=== PATIENT | female | born 1940 | race Caucasian/White ===

== ENCOUNTER 2018-06-02 07:48 | Inpatient (IN) | payer MEDICARE, BC ==
--- NOTE | 2018-06-02 08:37 | EDM.PDOC ---
ED HPI GENERAL MEDICAL PROBLEM - General Chief Complaint: General Stated Complaint: FALL VIA [place]TH Time Seen by Provider: 06/02/18 08:37 Source of Information: Reports: Patient History Limitations: Reports: No Limitations - History of Present Illness INITIAL COMMENTS - FREE TEXT/NARRATIVE: pt was sittng on the stool having a bm and shje became litheaded and passed out. She ended up hitting her left shoulder and she has alot of bruising and pain in the left shoulder area, She is also tender over the left upper chest. She is mildly sob. Onset: Today, Sudden Duration: Hour(s): Location: Reports: Chest, Upper Extremity, Left Associated Symptoms: Reports: Syncope, Other (pt passed out while having a stool. ) Left Arm Pain Score (Numeric/FACES): 10 - Related Data Allergies Allergy/AdvReac Type Severity Reaction Status Date / Time nickel Allergy Itching Verified 06/02/18 08:07 Home Meds: Home Meds Allopurinol [Zyloprim] 100 mg PO ASDIRECTED PRN 08/26/13 [History] Cyanocobalamin (Vitamin B-12) [Vitamin B-12] 1 tab PO DAILY 08/26/13 [History] Calcium Carb/Vitamin D3/Vit K1 [Calcium + Vit D & K Chew] 1 each PO BID [History] Carvedilol [Coreg] 6.25 mg PO BID 02/09/15 [History] Cholecalciferol (Vitamin D3) [Vitamin D3] 2,000 unit PO DAILY 02/09/15 [History] Vitamin B Complex [B Complex] 1 each PO DAILY 02/09/15 [History] Polyethylene Glycol 3350 [MiraLAX] 119 gm PO ASDIRECTED PRN 06/02/18 [History] Past Medical History HEENT History: Reports: Cataract, Macular Degeneration, Retinal Detachment Cardiovascular History: Reports: Heart Failure, High Cholesterol, Hypertension Gastrointestinal History: Reports: Cholelithiasis Genitourinary History: Reports: Acute Renal Failure [employer]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: Musculoskeletal History: Reports: Arthritis, Back Pain, Chronic, Gout Endocrine/Metabolic History: Reports: Obesity/BMI 30+ Hematologic History: Reports: B12 Deficiency - Infectious Disease History Infectious Disease History: Reports: Chicken Pox - Past Surgical History HEENT Surgical History: Reports: Cataract Surgery, Other (See Below) GI Surgical History: Reports: Bariatric Procedure, Cholecystectomy Female Surgical History: Reports: Tubal Ligation Musculoskeletal Surgical History: Reports: Joint Replacement, Knee Replacement Other Musculoskeletal Surgeries/Procedures:: both knees Social & Family History - Family History HEENT: Reports: Macular Degeneration Cardiac: Reports: Heart Failure Other Endocrine/Metabolic Family History: No family history of difficulty with anesthesia - Tobacco Use Smoking Status *Q: Former Smoker Used Tobacco, but Quit: Yes Month/Year Tobacco Last Used: 10 years ago - Caffeine Use Caffeine Use: Reports: Coffee - Recreational Drug Use Recreational Drug Use: No ED ROS GENERAL - Review of Systems Review Of Systems: See Below Constitutional: Reports: No Symptoms HEENT: Reports: No Symptoms Respiratory: Reports: No Symptoms Cardiovascular: Reports: No Symptoms Endocrine: Reports: No Symptoms GI/Abdominal: Reports: No Symptoms : Reports: No Symptoms Musculoskeletal: Reports: Other ( severe swelling and pain in the left shoulder area. ) Skin: Reports: No Symptoms Neurological: Reports: No Symptoms Psychiatric: Reports: No Symptoms ED EXAM, GENERAL - Physical Exam Exam: See Below Free Text/Narrative:: Pt arrived with pain and swelling in the left shoulder. She had a episode of syncope while having a bm thjis am. She fell and injured the ant chest and left shoulder. Exam Limited By: No Limitations General Appearance: Alert, Moderate Distress, Other (pupils equal and reactive. ) Ears: Normal TMs Nose: Normal Inspection Throat/Mouth: Normal Inspection Head: Atraumatic Neck: Normal Inspection Respiratory/Chest: No Respiratory Distress Cardiovascular: Regular Rate, Rhythm GI/Abdominal: Soft (Female) Exam: Deferred Rectal (Female) Exam: Deferred Back Exam: Normal Inspection Extremities: Normal Inspection Neurological: Alert, Oriented, Normal Cognition Psychiatric: Normal Affect Course - Vital Signs Last Recorded V/S: Last Vital Signs Temp 36.3 C 06/02/18 08:04 Pulse 71 06/02/18 08:04 Resp 17 06/02/18 08:04 BP 150/64 H 06/02/18 08:04 Pulse Ox 100 06/02/18 08:04 - Orders/Labs/Meds Orders: Active Orders 24 hr Category Date Time Status EKG Documentation Completion [RC] ASDIRECTED Care 06/02/18 08:39 Active Chest 1V Frontal [CR] Stat Exams 06/02/18 08:35 Taken Chest wo Cont [CT] Stat Exams 06/02/18 09:27 Taken Shoulder 1V Lt [CR] Stat Exams 06/02/18 08:35 Taken UA W/MICROSCOPIC [URIN] Urgent Lab 06/02/18 08:39 Ordered Sodium Chloride 0.9% [Normal Saline] 1,000 ml Med 06/02/18 08:45 Active IV ASDIRECTED Sodium Chloride 0.9% [Saline Flush] Med 06/02/18 08:39 Active 10 ml FLUSH ASDIRECTED PRN Saline Lock Insert [OM.PC] Routine Oth 06/02/18 08:39 Ordered EKG 12 Lead [EK] Routine Ther 06/02/18 08:39 Ordered Medication Orders Sodium Chloride (Normal Saline) 1,000 mls @ 500 mls/hr IV ASDIRECTED ANJELICA Last Admin: 06/02/18 10:27 Dose: 500 mls/hr Sodium Chloride (Saline Flush) 10 ml FLUSH ASDIRECTED PRN PRN Reason: Keep Vein Open Labs: Laboratory Tests 06/02/18 06/02/18 06/02/18 Range/Units 08:51 08:51 08:51 WBC 10.1 (4.5-11.0) K/uL RBC 3.71 (3.30-5.50) M/uL Hgb 12.4 (12.0-15.0) g/dL Hct 36.1 (36.0-48.0) % MCV 97 (80-98) fL MCH 33 H (27-31) pg MCHC 34 (32-36) % Plt Count 229 (150-400) K/uL Neut % (Auto) 80 H (36-66) % Lymph % (Auto) 10 L (24-44) % [place] % (Auto) 10 H (2-6) % Eos % (Auto) 0 L (2-4) % Baso % (Auto) 0 (0-1) % Sodium 136 L (140-148) mmol/L Potassium 4.6 (3.6-5.2) mmol/L Chloride 105 (100-108) mmol/L Carbon Dioxide 24 (21-32) mmol/L Anion Gap 11.6 (5.0-14.0) mmol/L BUN 27 H (7-18) mg/dL Creatinine 1.1 H (0.6-1.0) mg/dL Est Cr Clr Drug Dosing 38.16 mL/min Estimated GFR (MDRD) 48 L (>60) Glucose 135 H (74-106) mg/dL Calcium 8.7 (8.5-10.1) mg/dL Total Bilirubin 1.1 H D (0.2-1.0) mg/dL AST 34 D (15-37) U/L ALT 22 D (12-78) U/L Alkaline Phosphatase 87 (46-116) U/L Troponin I < 0.017 (0.000-0.056) ng/mL Total Protein 6.8 (6.4-8.2) g/dL Albumin 3.2 L (3.4-5.0) g/dL Globulin 3.6 H (2.3-3.5) g/dL Albumin/Globulin Ratio 0.9 L (1.2-2.2) Meds: Medications Generic Name Dose Route Start Last Admin Trade Name Freq PRN Reason Stop Dose Admin Sodium Chloride 1,000 mls @ 500 mls/hr 06/02/18 08:45 06/02/18 10:27 Normal Saline IV 500 mls/hr ASDIRECTED ANJELICA Administration Sodium Chloride 10 ml 06/02/18 08:39 Saline Flush FLUSH ASDIRECTED PRN Keep Vein Open Discontinued Medications Generic Name Dose Route Start Last Admin Trade Name Freq PRN Reason Stop Dose Admin Hydromorphone HCl 0.5 mg 06/02/18 08:38 06/02/18 08:49 Dilaudid IVPUSH 06/02/18 08:39 0.5 mg ONETIME ONE Administration - Re-Assessments/Exams Free Text/Narrative Re-Assessment/Exam: 06/02/18 09:36 pt has fractured humerus with displacement. Pt has a fracture on the trochanter of the humeral head without sig displacement. Her clavicle is intact. There was a questable fracture of the 3rd rib and alot of swellin over the left upper chest. A cat scan of the chest was done which showed no lung injury There is thickening of the pectoralis and the rotator cuff. There is edema of the anterior chest. 06/02/18 10:34 Departure - Departure Time of Disposition: 10:54 Disposition: Admitted As Inpatient 68 Condition: Fair Clinical Impression: Humeral shaft fracture, Fracture of humerus greater tuberosity, Hematoma, chest wall - Discharge Information Referrals: Sumit Lauren MD [Primary Care Provider] - Forms: ED Department Discharge Care Plan Goals: admit to Dr martines. - My Orders Last 24 Hours: My Active Orders 06/02/18 08:35 Chest 1V Frontal [CR] Stat Shoulder 1V Lt [CR] Stat 06/02/18 08:39 EKG Documentation Completion [RC] ASDIRECTED UA W/MICROSCOPIC [URIN] Urgent Sodium Chloride 0.9% [Saline Flush] 10 ml FLUSH ASDIRECTED PRN Saline Lock Insert [OM.PC] Routine EKG 12 Lead [EK] Routine 06/02/18 08:45 Sodium Chloride 0.9% [Normal Saline] 1,000 ml IV ASDIRECTED 06/02/18 09:27 Chest wo Cont [CT] Stat - Assessment/Plan Last 24 Hours: My Active Orders 06/02/18 08:35 Chest 1V Frontal [CR] Stat Shoulder 1V Lt [CR] Stat 06/02/18 08:39 EKG Documentation Completion [RC] ASDIRECTED UA W/MICROSCOPIC [URIN] Urgent Sodium Chloride 0.9% [Saline Flush] 10 ml FLUSH ASDIRECTED PRN Saline Lock Insert [OM.PC] Routine EKG 12 Lead [EK] Routine 06/02/18 08:45 Sodium Chloride 0.9% [Normal Saline] 1,000 ml IV ASDIRECTED 06/02/18 09:27 Chest wo Cont [CT] Stat
[2018-06-02] MEDS ORDERED: HYDROmorphone 0.5 MG/0.5 ML Syringe IVPUSH ONE ×2 (08:38→12:10)
[2018-06-02] MEDS ORDERED: Sodium Chloride 0.9% 10 ML Syringe FLUSH PRN ×3 (08:39→23:53)
[2018-06-02] MEDS ORDERED: Sodium Chloride 0.9% 1,000 ML IV SCH (08:45)
--- NOTE | 2018-06-02 12:07 | PCM.HP ---
H&P History of Present Illness - General Date of Service: 06/02/18 Admit Problem/Dx: Admission Diagnosis/Problem Admission Diagnosis/Problem Syncope Source of Information: Patient, Family, Old Records, Provider, RN Notes Reviewed History Limitations: Reports: No Limitations - History of Present Illness Initial Comments - Free Text/Narative: Ms. Sal is a 77-year-old woman who is admitted through the emergency department following a syncopal episode, resulting in hematoma and 2 fractures of the left humerus. She has a known history of congestive heart failure, but has had improvement in her heart function. She has been taking Coreg twice daily but recently has experienced episodes of lightheadedness. Her dose of Coreg was recently decreased, she felt well yesterday and felt well when she got up this morning. After getting out of bed she went into the bathroom and was sitting on the toilet when she experienced sudden onset of a syncopal event. She denies any prodromal symptoms including lightheadedness, nausea, or diaphoresis. She experienced no symptoms of chest pain or pressure and noted no palpitations including rapid or slow heart rate. She experienced severe pain in her left arm and shoulder immediately following the event. She was brought into the emergency department for further evaluation and is noted to have a fracture of the left humeral head as well as a displaced midshaft fracture. X-rays have been reviewed by the orthopedic service and current recommendation is that this be managed conservatively. Left Arm Pain Score (Numeric/FACES): 10 - Related Data Allergies/Adverse Reactions: Allergies Allergy/AdvReac Type Severity Reaction Status Date / Time nickel Allergy Itching Verified 06/02/18 08:07 Home Medications: Home Meds Allopurinol [Zyloprim] 100 mg PO ASDIRECTED PRN 08/26/13 [History] Cyanocobalamin (Vitamin B-12) [Vitamin B-12] 1 tab PO DAILY 08/26/13 [History] Calcium Carb/Vitamin D3/Vit K1 [Calcium + Vit D & K Chew] 1 each PO BID [History] Carvedilol [Coreg] 6.25 mg PO BID 02/09/15 [History] Cholecalciferol (Vitamin D3) [Vitamin D3] 2,000 unit PO DAILY 02/09/15 [History] Vitamin B Complex [B Complex] 1 each PO DAILY 02/09/15 [History] Polyethylene Glycol 3350 [MiraLAX] 119 gm PO ASDIRECTED PRN 06/02/18 [History] Past Medical History HEENT History: Reports: Cataract, Macular Degeneration, Retinal Detachment Cardiovascular History: Reports: Heart Failure, High Cholesterol, Hypertension Gastrointestinal History: Reports: Cholelithiasis Genitourinary History: Reports: Acute Renal Failure 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: Musculoskeletal History: Reports: Arthritis, Back Pain, Chronic, Gout Endocrine/Metabolic History: Reports: Obesity/BMI 30+ Hematologic History: Reports: B12 Deficiency - Infectious Disease History Infectious Disease History: Reports: Chicken Pox - Past Surgical History HEENT Surgical History: Reports: Cataract Surgery, Other (See Below) GI Surgical History: Reports: Bariatric Procedure, Cholecystectomy Female Surgical History: Reports: Tubal Ligation Musculoskeletal Surgical History: Reports: Joint Replacement, Knee Replacement Other Musculoskeletal Surgeries/Procedures:: both knees Social & Family History - Family History HEENT: Reports: Macular Degeneration Cardiac: Reports: Heart Failure Other Endocrine/Metabolic Family History: No family history of difficulty with anesthesia - Tobacco Use Smoking Status *Q: Former Smoker Used Tobacco, but Quit: Yes Month/Year Tobacco Last Used: 10 years ago - Caffeine Use Caffeine Use: Reports: Coffee - Recreational Drug Use Recreational Drug Use: No H&P Review of Systems - Review of Systems: Review Of Systems: See Below General: Denies: Fever, Chills, Weakness, Diaphoresis HEENT: Reports: No Symptoms Pulmonary: Reports: No Symptoms Cardiovascular: Reports: Lightheadedness, Syncope. Denies: Chest Pain, Palpitations, Dyspnea on Exertion, Orthopnea, PND, Edema Gastrointestinal: Reports: No Symptoms Genitourinary: Reports: No Symptoms Musculoskeletal: Reports: Arm Pain (Severe left arm pain) Skin: Reports: No Symptoms Psychiatric: Reports: No Symptoms Neurological: Reports: No Symptoms Hematologic/Lymphatic: Reports: No Symptoms Immunologic: Reports: No Symptoms Exam - Exam Exam: See Below - Vital Signs Vital Signs: Last Vital Signs Temp 97.3 F 06/02/18 08:04 Pulse 74 06/02/18 11:03 Resp 17 06/02/18 11:03 BP 151/64 H 06/02/18 11:03 Pulse Ox 96 06/02/18 11:03 Weight: 180 lb - Exam Quality Assessment: DVT Prophylaxis General: Alert, Oriented, Cooperative, Moderate Distress HEENT: Conjunctiva Clear, Hearing Intact, Mucosa Moist & [place], Normal Nasal Septum, Posterior Pharynx Clear, Pupils Equal Neck: Supple, Trachea Midline, +2 Carotid Pulse wo Bruit Lungs: Clear to Auscultation, Normal Respiratory Effort Cardiovascular: Regular Rate, Regular Rhythm, Normal S1, Normal S2. No: Systolic Murmur, Diastolic Murmur GI/Abdominal Exam: Soft, Non-Tender, No Organomegaly, No Distention Extremities: No Pedal Edema, Other (Severe pain left upper arm) Skin: Warm, Dry Neurological: Cranial Nerves Intact, Strength Equal Bilateral, Normal Speech, Normal Tone, Sensation Intact. No: Focal Deficit Neuro Extensive - Mental Status: Alert, Oriented x3, Normal Mood/Affect, Normal Cognition, Memory Intact - Patient Data Lab Results Last 24 hrs: Laboratory Results - last 24 hr 06/02/18 06/02/18 06/02/18 Range/Units 08:51 08:51 08:51 WBC 10.1 (4.5-11.0) K/uL RBC 3.71 (3.30-5.50) M/uL Hgb 12.4 (12.0-15.0) g/dL Hct 36.1 (36.0-48.0) % MCV 97 (80-98) fL MCH 33 H (27-31) pg MCHC 34 (32-36) % Plt Count 229 (150-400) K/uL Neut % (Auto) 80 H (36-66) % Lymph % (Auto) 10 L (24-44) % [place] % (Auto) 10 H (2-6) % Eos % (Auto) 0 L (2-4) % Baso % (Auto) 0 (0-1) % Sodium 136 L (140-148) mmol/L Potassium 4.6 (3.6-5.2) mmol/L Chloride 105 (100-108) mmol/L Carbon Dioxide 24 (21-32) mmol/L Anion Gap 11.6 (5.0-14.0) mmol/L BUN 27 H (7-18) mg/dL Creatinine 1.1 H (0.6-1.0) mg/dL Est Cr Clr Drug Dosing 38.16 mL/min Estimated GFR (MDRD) 48 L (>60) Glucose 135 H (74-106) mg/dL Calcium 8.7 (8.5-10.1) mg/dL Total Bilirubin 1.1 H D (0.2-1.0) mg/dL AST 34 D (15-37) U/L ALT 22 D (12-78) U/L Alkaline Phosphatase 87 (46-116) U/L Troponin I < 0.017 (0.000-0.056) ng/mL Total Protein 6.8 (6.4-8.2) g/dL Albumin 3.2 L (3.4-5.0) g/dL Globulin 3.6 H (2.3-3.5) g/dL Albumin/Globulin Ratio 0.9 L (1.2-2.2) Result Diagrams: 06/02/18 08:51 06/02/18 08:51 *Q Meaningful Use (ADM) - VTE *Q VTE Pharmacological Contraindications *Q: Risk of Bleeding - VTE Risk Assess *Q Each Risk Factor Represents 1 Point: Obesity ( BMI > 25 kg/m2), Congestive heart failure (CHF) Total Score 1 Point Risk Factors: 2 Each Risk Factor Represents 2 Points: None Total Score 2 Point Risk Factors: 0 Each Risk Factor Represents 3 Points: Age 75 Years or Greater Total Score 3 Point Risk Factors: 3 Each Risk Factor Represents 5 Points: None Total Score 5 Point Risk Factors: 0 Venous Thromboembolism Risk Factor Score *Q: 5 Problem List Initiated/Reviewed/Updated: Yes Orders Last 24hrs: Active Orders 24 hr Category Date Time Status Patient Status Manage Transfer [TRANSFER] Routine ADT 06/02/18 11:46 Active EKG Documentation Completion [RC] ASDIRECTED Care 06/02/18 08:39 Active Chest 1V Frontal [CR] Stat Exams 06/02/18 08:35 Taken Chest wo Cont [CT] Stat Exams 06/02/18 09:27 Taken Shoulder 1V Lt [CR] Stat Exams 06/02/18 08:35 Taken UA W/MICROSCOPIC [URIN] Urgent Lab 06/02/18 08:39 Ordered HYDROmorphone [Dilaudid] Med 06/02/18 12:10 Once 0.5 mg IVPUSH ONETIME ONE Sodium Chloride 0.9% [Saline Flush] Med 06/02/18 08:39 Active 10 ml FLUSH ASDIRECTED PRN Saline Lock Insert [OM.PC] Routine Oth 06/02/18 08:39 Ordered Resuscitation Status Routine Resus Stat 06/02/18 11:48 Ordered EKG 12 Lead [EK] Routine Ther 06/02/18 08:39 Ordered Medication Orders Hydromorphone HCl (Dilaudid) 0.5 mg IVPUSH ONETIME ONE Stop: 06/02/18 12:11 Sodium Chloride (Saline Flush) 10 ml FLUSH ASDIRECTED PRN PRN Reason: Keep Vein Open Assessment/Plan Comment:: ASSESSMENT AND PLAN SYNCOPAL EPISODE-recent history of lightheadedness, thought to be secondary to medication effect. Denied symptoms of lightheadedness this morning but experienced abrupt onset of syncope with no prodromal symptoms. -Cardiac monitoring -Orthostatic vital signs -Hold Coreg LEFT HUMERUS [id number] shows evidence of fracture of the humeral head as well as a fracture involving the proximal third of the humeral shaft. X-rays have been reviewed by orthopedic surgery and they have recommended conservative management. -Pain medication as needed -Shoulder immobilizer -Outpatient follow-up with orthopedic surgery HEMATOMA-secondary to fracture and fall -Follow-up hemoglobin later today and again in a.m. CONGESTIVE HEART FAILURE-well compensated MAINTENANCE ISSUES -DVT prophylaxis; SCUDs, hold on anticoagulation because of hematoma -GI prophylaxis; not indicated -Chaves catheter; not indicated -Nutrition; regular diet -Nicotine dependence; not required CODE STATUS-FULL CODE ADMISSION STATUS-patient will be admitted to inpatient status, expect at least a 2 night hospital stay for evaluation and management of problems as outlined above. At the time of this admission I do not reasonably expected evaluation and management of this problem will require more than a 96 hour hospital stay. DISPOSITION-anticipate discharge to home after the hospital stay. PRIMARY CARE PROVIDER-Dr. Lauren
[2018-06-02] MEDS ORDERED: Ondansetron 4 MG/2 ML SDV IV PRN (12:20)
[2018-06-02] MEDS ORDERED: HYDROmorphone/Normal Saline 15 MG/30 ML PCA IV PRN (12:20)
[2018-06-02] MEDS ORDERED: Polyethylene Glycol 3350 Powder 17 GM Packet PO PRN (12:20)
[2018-06-02] MEDS ORDERED: Magnesium Hydroxide 400 MG/5 ML Susp 30 ML Cup PO PRN (12:20)
[2018-06-02] MEDS ORDERED: Acetaminophen 325 MG Tab PO PRN (12:20)
[2018-06-02] MEDS ORDERED: Allopurinol 100 MG Tab PO PRN (12:20)
[2018-06-02] MEDS ORDERED: Naloxone 0.4 MG/ML SDV IVPUSH PRN (12:20)
[2018-06-02] MEDS: Lactated Ringers 1,000 ML IV SCH (13:02)
[2018-06-02] MEDS: Cholecalciferol (Vitamin D3) 1,000 Unit Tab PO SCH (15:12)
[2018-06-02] MEDS: Vitamin B Complex Tab PO SCH (15:12)
[2018-06-02] MEDS: Docusate Sodium 100 MG Cap PO SCH ×2 (15:12→21:40)
[2018-06-02] MEDS: Calcium Carbonate/Vitamin D3 1500 MG-400 Units Tab PO SCH ×2 (15:12→21:40)
[2018-06-02] MEDS: Cyanocobalamin (Vitamin B12) 1,000 MCG Tab PO SCH (15:12)
[2018-06-03] MEDS: Lactated Ringers 1,000 ML IV SCH (03:53)
[2018-06-03] MEDS: Docusate Sodium 100 MG Cap PO SCH ×2 (08:54→22:06)
[2018-06-03] MEDS: Cyanocobalamin (Vitamin B12) 1,000 MCG Tab PO SCH (08:55)
[2018-06-03] MEDS: Cholecalciferol (Vitamin D3) 1,000 Unit Tab PO SCH (08:55)
[2018-06-03] MEDS: Calcium Carbonate/Vitamin D3 1500 MG-400 Units Tab PO SCH ×2 (08:56→22:06)
[2018-06-03] MEDS: Vitamin B Complex Tab PO SCH (08:56)
--- NOTE | 2018-06-03 10:47 | PCM.PN ---
- General Info Date of Service: 06/03/18 Subjective Update: This patient has remained stable since admission, pain control overall has been adequate. She did experience a drop in hemoglobin with hydration but there is no further evidence of active bleeding. She denies significant lightheadedness and there have been no significant cardiac dysrhythmias or orthostatic drop in blood pressure. - Review of Systems General: Denies: Fever, Weakness, Chills Pulmonary: Reports: No Symptoms Cardiovascular: Reports: No Symptoms Gastrointestinal: Reports: No Symptoms Musculoskeletal: Reports: Arm Pain - Patient Data Vitals - Most Recent: Last Vital Signs Temp 97.4 F 06/03/18 07:35 Pulse 78 06/03/18 03:00 Resp 16 06/03/18 03:00 BP 137/45 L 06/03/18 03:00 Pulse Ox 94 L 06/03/18 07:46 Orthostatic Blood Pressure [ 130/104 Standing] Orthostatic Blood Pressure [ 149/76 Sitting] Orthostatic Blood Pressure [ 138/61 Supine] Weight - Most Recent: 190 lb I&O - Last 24 Hours: Intake & Output 06/02/18 06/03/18 06/03/18 22:59 06:59 14:59 Intake Total 830 Output Total 100 375 100 Balance 730 -375 -100 Lab Results Last 24 Hours: Laboratory Results - last 24 hr 06/02/18 06/02/18 06/03/18 Range/Units 18:19 18:29 04:50 WBC 6.8 (4.5-11.0) K/uL RBC 3.15 L (3.30-5.50) M/uL Hgb 11.2 L 10.3 L (12.0-15.0) g/dL Hct 31.3 L (36.0-48.0) % MCV 99 H (80-98) fL MCH 33 H (27-31) pg MCHC 33 (32-36) % Plt Count 190 (150-400) K/uL Neut % (Auto) 61 (36-66) % Lymph % (Auto) 21 L (24-44) % Tate % (Auto) 17 H (2-6) % Eos % (Auto) 1 L (2-4) % Baso % (Auto) 0 (0-1) % Sodium (140-148) mmol/L Potassium (3.6-5.2) mmol/L Chloride (100-108) mmol/L Carbon Dioxide (21-32) mmol/L Anion Gap (5.0-14.0) mmol/L BUN (7-18) mg/dL Creatinine (0.6-1.0) mg/dL Est Cr Clr Drug Dosing mL/min Estimated GFR (MDRD) (>60) Glucose (74-106) mg/dL Calcium (8.5-10.1) mg/dL Urine Color Yellow Urine Appearance Cloudy Urine pH 5.0 (4.5-8.0) Ur Specific Allyn 1.020 (1.008-1.030) Urine Protein Trace (NEGATIVE) mg/dL Urine Glucose (UA) Normal (NEGATIVE) mg/dL Urine Ketones Negative (NEGATIVE) mg/dL Urine Occult Blood Moderate (NEGATIVE) Urine Nitrite Negative (NEGATIVE) Urine Bilirubin Small (NEGATIVE) Urine Urobilinogen Normal (NORMAL) mg/dL Ur Leukocyte Esterase Small (NEGATIVE) Urine RBC 5-10 H (0-5) Urine WBC 20-30 H (0-5) Ur Epithelial Cells Few Amorphous Sediment Not seen Urine Bacteria Many Urine Mucus Not seen 06/03/18 Range/Units 04:50 WBC (4.5-11.0) K/uL RBC (3.30-5.50) M/uL Hgb (12.0-15.0) g/dL Hct (36.0-48.0) % MCV (80-98) fL MCH (27-31) pg MCHC (32-36) % Plt Count (150-400) K/uL Neut % (Auto) (36-66) % Lymph % (Auto) (24-44) % Tate % (Auto) (2-6) % Eos % (Auto) (2-4) % Baso % (Auto) (0-1) % Sodium 138 L (140-148) mmol/L Potassium 4.5 (3.6-5.2) mmol/L Chloride 106 (100-108) mmol/L Carbon Dioxide 23 (21-32) mmol/L Anion Gap 13.5 (5.0-14.0) mmol/L BUN 28 H (7-18) mg/dL Creatinine 1.1 H (0.6-1.0) mg/dL Est Cr Clr Drug Dosing 38.16 mL/min Estimated GFR (MDRD) 48 L (>60) Glucose 120 H (74-106) mg/dL Calcium 8.2 L (8.5-10.1) mg/dL Urine Color Urine Appearance Urine pH (4.5-8.0) Ur Specific Allyn (1.008-1.030) Urine Protein (NEGATIVE) mg/dL Urine Glucose (UA) (NEGATIVE) mg/dL Urine Ketones (NEGATIVE) mg/dL Urine Occult Blood (NEGATIVE) Urine Nitrite (NEGATIVE) Urine Bilirubin (NEGATIVE) Urine Urobilinogen (NORMAL) mg/dL Ur Leukocyte Esterase (NEGATIVE) Urine RBC (0-5) Urine WBC (0-5) Ur Epithelial Cells Amorphous Sediment Urine Bacteria Urine Mucus Med Orders - Current: Current Medications Acetaminophen (Tylenol) 650 mg PO Q4H PRN PRN Reason: Pain (Mild 1-3)/fever Allopurinol (Zyloprim) 100 mg PO ASDIRECTED PRN PRN Reason: gout Calcium Carbonate (Caltrate 600+D 1500 Mg-400 Units) 1 tab PO BID [facility] Last Admin: 06/03/18 08:56 Dose: 1 tab Cholecalciferol (Vitamin D3) 2,000 units PO DAILY [facility] Last Admin: 06/03/18 08:55 Dose: 2,000 units Cyanocobalamin (Vitamin B12) 1,000 mcg PO DAILY [facility] Last Admin: 06/03/18 08:55 Dose: 1,000 mcg Docusate Sodium (Colace) 100 mg PO BID [facility] Last Admin: 06/03/18 08:54 Dose: 100 mg Magnesium Hydroxide (Milk Of Magnesia) 30 ml PO Q12H PRN PRN Reason: Constipation Naloxone HCl (Narcan) 0.4 mg IVPUSH Q2M PRN PRN Reason: Respiratory Distress Ondansetron HCl (Zofran) 4 mg IV Q4H PRN PRN Reason: Nausea/Vomiting Polyethylene Glycol (Miralax) 17 gm PO DAILY PRN PRN Reason: Constipation Sodium Chloride (Saline Flush) 10 ml FLUSH ASDIRECTED PRN PRN Reason: Keep Vein Open Vitamin B Complex (Vitamin B Complex) 1 each PO DAILY [facility] Last Admin: 06/03/18 08:56 Dose: 1 each Discontinued Medications Hydromorphone HCl (Dilaudid) 0.5 mg IVPUSH ONETIME ONE Stop: 06/02/18 08:39 Last Admin: 06/02/18 08:49 Dose: 0.5 mg Hydromorphone HCl (Dilaudid) 0.5 mg IVPUSH ONETIME ONE Stop: 06/02/18 12:11 Last Admin: 06/02/18 12:22 Dose: 0.5 mg Hydromorphone HCl (Dilaudid Sewage Disposal Worker 15 Mg In Ns 30 Ml) 0 mg IV ASDIRECTED PRN; Protocol PRN Reason: Pain Last Admin: 06/02/18 13:02 Dose: 15 mg Sodium Chloride (Normal Saline) 1,000 mls @ 500 mls/hr IV ASDIRECTED ANJELICA Last Admin: 06/02/18 10:27 Dose: 500 mls/hr Lactated Ringer's (Ringers, Lactated) 1,000 mls @ 75 mls/hr IV ASDIRECTED [facility] Last Admin: 06/03/18 03:53 Dose: 75 mls/hr Sodium Chloride (Saline Flush) 10 ml FLUSH ASDIRECTED PRN PRN Reason: Keep Vein Open - Exam Quality Assessment: DVT Prophylaxis General: Alert, Oriented, Cooperative, Moderate Distress Lungs: Clear to Auscultation, Normal Respiratory Effort Cardiovascular: Regular Rate, Regular Rhythm, No Murmurs GI/Abdominal Exam: Soft, Non-Tender, No Organomegaly, No Distention Extremities: Arm Pain (Left arm is in a shoulder immobilizer) - Problem List Review Problem List Initiated/Reviewed/Updated: Yes - My Orders Last 24 Hours: My Active Orders 06/02/18 11:48 Resuscitation Status Routine 06/02/18 12:20 Patient Status [ADT] Routine Ambulate [RC] QID Cardiac Monitoring [RC] .As Directed Height and Weight [RC] DAILY Intake and Output [RC] QSHIFT Notify Provider Vital Signs [RC] ASDIRECTED Orthostatic Vital Signs [RC] Q6H Oxygen Therapy [RC] PRN Peripheral IV Care [RC] . DIRECTED Up With Assistance [RC] ASDIRECTED Up to Chair [RC] QID VTE/DVT Education [RC] Per Unit Routine Vital Signs [RC] Q4H OT Evaluation and Treatment [CONS] Routine PT Evaluation and Treatment [CONS] Routine Acetaminophen [Tylenol] 650 mg PO Q4H PRN Allopurinol [Zyloprim] 100 mg PO ASDIRECTED PRN Docusate Sodium [Colace] 100 mg PO BID Magnesium Hydroxide [Milk of Magnesia] 30 ml PO Q12H PRN Naloxone [Narcan] 0.4 mg IVPUSH Q2M PRN Ondansetron [Zofran] 4 mg IV Q4H PRN Polyethylene Glycol 3350 [MiraLAX] 17 gm PO DAILY PRN Sodium Chloride 0.9% [Saline Flush] 10 ml FLUSH ASDIRECTED PRN Vitamin B Complex 1 each PO DAILY Peripheral IV Insertion Adult [OM.PC] Routine Sequential Compression Device [OM.PC] Per Unit Routine VTE Pharmacological Contraindications [AST] Per Unit Routine 06/02/18 12:45 Calcium Carbonate/Vitamin D3 [Caltrate 600+D 1500 MG-400 Units] 1 tab PO BID 06/02/18 13:00 Cholecalciferol (Vitamin D3) [Vitamin D3] 2,000 units PO DAILY Cyanocobalamin (Vitamin B12) [Vitamin B12] 1,000 mcg PO DAILY 06/02/18 Lunch Regular Diet [DIET] 06/03/18 10:42 Acetaminophen/HYDROcodone [Whiting 325-5 MG] 1 tab PO Q4H PRN Convert IV to Saline Lock [OM.PC] Routine 06/04/18 05:00 BASIC METABOLIC PANEL,BMP [CHEM] Timed CBC WITH AUTO DIFF [HEME] Timed - Plan Plan:: ASSESSMENT AND PLAN SYNCOPAL EPISODE-recent history of lightheadedness, thought to be secondary to medication effect. Denied symptoms of lightheadedness this morning but experienced abrupt onset of syncope with no prodromal symptoms. No lightheadedness since admission, no significant cardiac dysrhythmias or significant drop in blood pressure with orthostatic change. -Cardiac monitoring -Orthostatic vital signs -Hold Coreg LEFT HUMERUS [id number] shows evidence of fracture of the humeral head as well as a fracture involving the proximal third of the humeral shaft. X-rays have been reviewed by orthopedic surgery and they have recommended conservative management. -Pain medication as needed -Shoulder immobilizer -Outpatient follow-up with orthopedic surgery tomorrow HEMATOMA-secondary to fracture and fall. Hemoglobin has dropped with hydration, no further evidence of active bleeding -Follow-up hemoglobin in a.m. CONGESTIVE HEART FAILURE-well compensated MAINTENANCE ISSUES -DVT prophylaxis; SCUDs, hold on anticoagulation because of hematoma -GI prophylaxis; not indicated -Chaves catheter; not indicated -Nutrition; regular diet -Nicotine dependence; not required CODE STATUS-FULL CODE ADMISSION STATUS-patient will be admitted to inpatient status, expect at least a 2 night hospital stay for evaluation and management of problems as outlined above. At the time of this admission I do not reasonably expected evaluation and management of this problem will require more than a 96 hour hospital stay. DISPOSITION-anticipate discharge to home tomorrow PRIMARY CARE PROVIDER-Dr. Lauren
--- NOTE | 2018-06-03 10:55 | CR ---
CHEST: Portable CLINICAL HISTORY:Left shoulder pain COMPARISON:None FINDINGS: Heart and pulmonary vascularity are normal. No infiltrate effusion or pneumothorax seen. T here are comminuted factors of the left proximal humerus. IMPRESSION: Lung gao are clear Comminuted fractures of the proximal left humerus
--- NOTE | 2018-06-03 10:57 | CR ---
Shoulder 1V Lt CLINICAL HISTORY: Severe pain and swelling FINDINGS: There is a comminuted displaced fracture of the proximal humerus and greater tubercle. Ther e is also an oblique displaced fracture with comminution in the proximal humeral shaft. Impression: Comminuted fractures of the left proximal humerus
[2018-06-03] MEDS: Acetaminophen/HYDROcodone 325-5 MG Tab PO PRN ×3 (11:11→19:50)
[2018-06-04] MEDS: Acetaminophen/HYDROcodone 325-5 MG Tab PO PRN ×3 (00:59→10:05)
[2018-06-04 07:39] VITALS: BP 117/41
--- NOTE | 2018-06-04 08:36 | PCM.DCSUM1 ---
Discharge Summary - Hospital Course Brief History: Ms. Sal is a 77-year-old woman who was admitted through the emergency department after she experienced a syncopal episode at home resulting in a fall and fractures of her left humerus. - Discharge Data Discharge Date: 06/04/18 Discharge Disposition: Home, W Home Health Agency 06 Condition: Fair - Discharge Diagnosis/Problem(s) (1) Hematoma, chest wall SNOMED Code(s): 986997467 ICD Code: S20.219A - CONTUSION OF UNSPECIFIED FRONT WALL OF THORAX, INIT ENCNTR Status: Acute Current Visit: Yes (2) Humeral shaft fracture SNOMED Code(s): 34668122 ICD Code: S42.309A - UNSP FRACTURE OF SHAFT OF HUMERUS, UNSP ARM, INIT Status: Acute Current Visit: Yes (3) Fracture of humerus greater tuberosity SNOMED Code(s): 758748507 ICD Code: S42.253A - DISP FX OF GREATER TUBEROSITY OF UNSP HUMERUS, INIT Status: Acute Current Visit: Yes (4) Stage III chronic kidney disease SNOMED Code(s): 572597298 ICD Code: N18.3 - CHRONIC KIDNEY DISEASE, STAGE 3 (MODERATE) Status: Chronic Current Visit: No - Patient Summary/Data Consults: Consultations 06/02/18 12:20 OT Evaluation and Treatment [CONS] Routine Please Evaluate and Treat. OT Reason for Consult: Left humerus fracture This query below is only for informational purposes and is not editable. PT Evaluation and Treatment [CONS] Routine Please Evaluate and Treat. PT Reason for Consult: Left humerus fracture This query below is only for informational purposes and is not editable. Hospital Course: Ms. Sal is a 77-year-old woman who was admitted through the emergency department following a syncopal episode, resulting in hematoma and 2 fractures of the left humerus. She has a known history of congestive heart failure, but has had improvement in her heart function. She has been taking Coreg twice daily but recently has experienced episodes of lightheadedness. Her dose of Coreg was recently decreased, she felt well yesterday and felt well when she got up this morning. After getting out of bed she went into the bathroom and was sitting on the toilet when she experienced sudden onset of a syncopal event. She denies any prodromal symptoms including lightheadedness, nausea, or diaphoresis. She experienced no symptoms of chest pain or pressure and noted no palpitations including rapid or slow heart rate. She experienced severe pain in her left arm and shoulder immediately following the event. She was brought into the emergency department for further evaluation and is noted to have a fracture of the left humeral head as well as a displaced midshaft fracture. X-rays have been reviewed by the orthopedic service and current recommendation is that this be managed conservatively. She was admitted to the hospital and given IV fluids for hydration as well as pain medication. Her left arm was placed in a shoulder immobilizer sling. CT scan of the chest had been obtained and showed no evidence of rib fractures but did document hematoma involving the chest wall. Serial hemoglobin levels were obtained and hemoglobin by the time of discharge had dropped to 9.3 and 12.4 at the time of admission. We discussed options for ongoing care including senior living placement. Patient has opted to return home with home care services. She has a follow-up appointment scheduled with orthopedic surgery for later this morning. Follow-up appointment will be scheduled with her primary care provider within one week. Hemoglobin level will be obtained on Saturday since June 06 and at the time of follow-up appointment with primary care. Activity will be as tolerated and she will resume her usual diet. - Patient Instructions Diet: Usual Diet as Tolerated Activity: As Tolerated Other/Special Instructions: Schedule follow-up appointment with Dr. William within one week. Hemoglobin level should be obtained at the time of that follow- up appointment. Patient already has follow-up appointment with orthopedic surgery scheduled for later this morning. Please have home care services obtain a hemoglobin level on Saturday, June 06. - Discharge Plan *PRESCRIPTION DRUG MONITORING PROGRAM REVIEWED*: Not Applicable *COPY OF PRESCRIPTION DRUG MONITORING REPORT IN PATIENT SALIMA: Not Applicable Prescriptions/Med Rec: Acetaminophen/HYDROcodone [Bancroft 325-5 MG] 1 tab PO Q4H PRN #30 tablet PRN Reason: Pain Home Medications: Home Meds Allopurinol [Zyloprim] 100 mg PO ASDIRECTED PRN 08/26/13 [History] Cyanocobalamin (Vitamin B-12) [Vitamin B-12] 1 tab PO DAILY 08/26/13 [History] Calcium Carb/Vitamin D3/Vit K1 [Calcium + Vit D & K Chew] 1 each PO BID [History] Cholecalciferol (Vitamin D3) [Vitamin D3] 2,000 unit PO DAILY 02/09/15 [History] Vitamin B Complex [B Complex] 1 each PO DAILY 02/09/15 [History] L.acidoph,Paracasei, B.lactis [Probiotic] 1 cap 06/02/18 [History] Polyethylene Glycol 3350 [MiraLAX] 119 gm PO ASDIRECTED PRN 06/02/18 [History] Acetaminophen/HYDROcodone [B[place]roft 325-5 MG] 1 tab PO Q4H PRN #30 tablet 06/04/18 [Rx] Referrals: Sumit Lauren MD [Primary Care Provider] - Jahaira Moran NP [Advanced RN Practitioner] - 06/04/18 10:15 am ( at 10:15 AM) - Discharge Summary/Plan Comment DC Time >30 min.: No - Patient Data Vitals - Most Recent: Last Vital Signs Temp 96.5 F 06/04/18 07:34 Pulse 85 06/04/18 07:34 Resp 16 06/04/18 07:34 BP 117/41 L 06/04/18 07:34 Pulse Ox 97 06/04/18 07:34 Orthostatic Blood Pressure [ 126/52 Standing] Orthostatic Blood Pressure [ 124/48 Sitting] Orthostatic Blood Pressure [ 117/41 Supine] Weight - Most Recent: 190 lb 0.016 oz I&O - Last 24 hours: Intake & Output 06/03/18 06/04/18 06/04/18 22:59 06:59 14:59 Output Total 450 250 300 Balance -450 -250 -300 Lab Results - Last 24 hrs: Laboratory Results - last 24 hr 06/04/18 06/04/18 Range/Units 05:00 05:00 WBC 6.8 (4.5-11.0) K/uL RBC 2.83 L (3.30-5.50) M/uL Hgb 9.3 L (12.0-15.0) g/dL Hct 28.6 L (36.0-48.0) % MCV 101 H (80-98) fL MCH 33 H (27-31) pg MCHC 33 (32-36) % Plt Count 162 (150-400) K/uL Neut % (Auto) 64 (36-66) % Lymph % (Auto) 21 L (24-44) % Walsh % (Auto) 14 H (2-6) % Eos % (Auto) 1 L (2-4) % Baso % (Auto) 0 (0-1) % Sodium 137 L (140-148) mmol/L Potassium 4.1 (3.6-5.2) mmol/L Chloride 106 (100-108) mmol/L Carbon Dioxide 25 (21-32) mmol/L Anion Gap 10.1 (5.0-14.0) mmol/L BUN 24 H (7-18) mg/dL Creatinine 1.1 H (0.6-1.0) mg/dL Est Cr Clr Drug Dosing 38.44 mL/min Estimated GFR (MDRD) 48 L (>60) Glucose 112 H (74-106) mg/dL Calcium 8.1 L (8.5-10.1) mg/dL Med Orders - Current: Current Medications Acetaminophen (Tylenol) 650 mg PO Q4H PRN PRN Reason: Pain (Mild 1-3)/fever Hydrocodone Bitart/Acetaminophen (B[place]roft 325-5 Mg) 1 tab PO Q4H PRN PRN Reason: Pain Last Admin: 06/04/18 05:27 Dose: 1 tab Allopurinol (Zyloprim) 100 mg PO ASDIRECTED PRN PRN Reason: gout Calcium Carbonate (Caltrate 600+D 1500 Mg-400 Units) [address] [facility] Last Admin: 06/03/18 22:06 Dose: 1 tab Cholecalciferol (Vitamin D3) 2,[address] [facility] Last Admin: 06/03/18 08:55 Dose: 2,000 units Cyanocobalamin (Vitamin B12) 1,[address] [facility] Last Admin: 06/03/18 08:55 Dose: 1,000 mcg Docusate Sodium (Colace) [address] [facility] Last Admin: 06/03/18 22:06 Dose: 100 mg Magnesium Hydroxide (Milk Of Magnesia) 30 ml PO Q12H PRN PRN Reason: Constipation Naloxone HCl (Narcan) 0.4 mg IVPUSH Q2M PRN PRN Reason: Respiratory Distress Ondansetron HCl (Zofran) 4 mg IV Q4H PRN PRN Reason: Nausea/Vomiting Polyethylene Glycol (Miralax) 17 gm PO DAILY PRN PRN Reason: Constipation Sodium Chloride (Saline Flush) 10 ml FLUSH ASDIRECTED PRN PRN Reason: Keep Vein Open Vitamin B Complex (Vitamin B Complex) [address] [facility] Last Admin: 06/03/18 08:56 Dose: 1 each Discontinued Medications Hydromorphone HCl (Dilaudid) 0.5 mg IVPUSH ONETIME ONE Stop: 06/02/18 08:39 Last Admin: 06/02/18 08:49 Dose: 0.5 mg Hydromorphone HCl (Dilaudid) 0.5 mg IVPUSH ONETIME ONE Stop: 06/02/18 12:11 Last Admin: 06/02/18 12:22 Dose: 0.5 mg Hydromorphone HCl (Dilaudid Sandblast Or Shotblast Equipment Tender 15 Mg In Ns 30 Ml) 0 mg IV ASDIRECTED PRN; Protocol PRN Reason: Pain Last Admin: 06/02/18 13:02 Dose: 15 mg Sodium Chloride (Normal Saline) 1,000 mls @ 500 mls/hr IV ASDIRECTED [facility] Last Admin: 06/02/18 10:27 Dose: 500 mls/hr Lactated Ringer's (Ringers, Lactated) 1,000 mls @ 75 mls/hr IV ASDIRECTED [facility] Last Admin: 06/03/18 03:53 Dose: 75 mls/hr Sodium Chloride (Saline Flush) 10 ml FLUSH ASDIRECTED PRN PRN Reason: Keep Vein Open - Exam General: Reports: Alert, Oriented, Cooperative, Moderate Distress Lungs: Reports: Clear to Auscultation, Normal Respiratory Effort Cardiovascular: Reports: Regular Rate, Regular Rhythm, No Murmurs GI/Abdominal Exam: Soft, Non-Tender, No Organomegaly, No Distention *Q Meaningful Use (DIS) - VTE *Q VTE Pharmacological Contraindications *Q: Risk of Bleeding
[2018-06-04] MEDS: Cholecalciferol (Vitamin D3) 1,000 Unit Tab PO SCH (10:06)
[2018-06-04] MEDS: Calcium Carbonate/Vitamin D3 1500 MG-400 Units Tab PO SCH (10:06)
[2018-06-04] MEDS: Cyanocobalamin (Vitamin B12) 1,000 MCG Tab PO SCH (10:06)
[2018-06-04] MEDS: Vitamin B Complex Tab PO SCH (10:06)
[2018-06-04] MEDS: Docusate Sodium 100 MG Cap PO SCH (10:06)
--- NOTE | 2018-06-05 08:05 | LETTER ---
06/04/2018 RE: NATALYA RAMIREZ : 1940 To Whom It May Concern: This letter is in regard to Mrs. Natalya Stevenson who was hospitalized at our facility from June 02, 2018, to June 04, 2018. Ms. Sal was admitted to the hospital after she experienced a syncopal episode at home associated with a fall. Unfortunately, as a result of the fall, she experienced 2 fractures of her left humerus. She is very debilitated because of the humerus fracture and will require ongoing medical followup, as well as possible surgery. For this reason, she will be unable to travel for a period of at least 6 weeks. If there are any further questions concerning this issue, please feel free to contact me. Sincerely, /[phone]
== END 2018-06-04 10:05 | disposition home health service (06) | DRG 563 ==
LOC: JP.ED 07:48 → JP.MS 11:46
PROVIDERS: ADMIT Hospitalist; ATTEND Hospitalist
DX: S42.302A Unspecified fracture of shaft of humerus, left arm, initial encounter for closed fracture (principal); S42.252A Displaced fracture of greater tuberosity of left humerus, initial encounter for closed fracture; I13.0 Hypertensive heart and chronic kidney disease with heart failure and stage 1 through stage 4 chronic kidney disease, or unspecified chronic kidney disease; W18.12XA Fall from or off toilet with subsequent striking against object, initial encounter; M25.512 Pain in left shoulder; R07.89 Other chest pain; S42.292A Other displaced fracture of upper end of left humerus, initial encounter for closed fracture; Y92.002 Bathroom of unspecified non-institutional (private) residence as the place of occurrence of the external cause; S20.219A Contusion of unspecified front wall of thorax, initial encounter; I50.9 Heart failure, unspecified; N18.3 Chronic kidney disease, stage 3 (moderate); Z87.891 Personal history of nicotine dependence; R55 Syncope and collapse; Z98.84 Bariatric surgery status; E66.9 Obesity, unspecified; Z68.30 Body mass index [BMI] 30.0-30.9, adult; M10.9 Gout, unspecified; M19.90 Unspecified osteoarthritis, unspecified site; H35.30 Unspecified macular degeneration; Z96.659 Presence of unspecified artificial knee joint; Z91.048 Other nonmedicinal substance allergy status
CPT/HCPCS: 36415; 71045 ×2; 71250; 73020 ×2; 80053; 84484; 85025; 93005; 96361; 96374; 99285; J1170; J7030; 80048; 81001; 85018; 94762; 96376; 97110-GP; 97162-GP; 97165-GO; 97530-GP; 97535-GP; A9270-GY; J7120

== ENCOUNTER 2020-09-02 16:09 | Emergency (ER) | payer MEDICARE, BC ==
--- NOTE | 2020-09-02 17:40 | EDM.PDOC ---
<ShantiAdi damon Shaista - Last Filed: 09/02/20 17:33> ED HPI GENERAL MEDICAL PROBLEM - General Chief Complaint: Syncope Stated Complaint: MEDICAL [facility] Time Seen by Provider: 09/02/20 17:20 Source of Information: Reports: Patient, RN History Limitations: Reports: No Limitations - History of Present Illness Onset: Today, Sudden Duration: Minutes:, Resolved Prior to Arrival Location: Reports: Head, Back Quality: Reports: Ache Severity: Mild Improves with: Reports: None Worsens with: Reports: None Context: Reports: Activity - Related Data Allergies Allergy/AdvReac Type Severity Reaction Status Date / Time nickel Allergy Itching Verified 09/02/20 16:13 Home Meds: Home Meds Cyanocobalamin (Vitamin B-12) [Vitamin B-12] 1 tab PO DAILY 08/26/13 [History] Calcium Carb/Vitamin D3/Vit K1 [Calcium + Vit D & K Chew] 1 each PO BID 02/09/15 [History] Cholecalciferol (Vitamin D3) [Vitamin D3] 2,000 unit PO DAILY 02/09/15 [History] Vitamin B Complex [B Complex] 1 each PO DAILY 02/09/15 [History] Furosemide [Lasix] 20 mg PO ASDIRECTED 09/02/20 [History] Losartan [Cozaar] 12.5 mg PO DAILY 09/02/20 [History] carvediloL [Carvedilol] 12.5 mg PO BID 09/02/20 [History] Past Medical History HEENT History: Reports: Cataract, Macular Degeneration, Retinal Detachment Cardiovascular History: Reports: Heart Failure, High Cholesterol, Hypertension Gastrointestinal History: Reports: Cholelithiasis Genitourinary History: Reports: Acute Renal Failure 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: Musculoskeletal History: Reports: Arthritis, Back Pain, Chronic, Gout Endocrine/Metabolic History: Reports: Obesity/BMI 30+ Hematologic History: Reports: B12 Deficiency - Infectious Disease History Infectious Disease History: Reports: Chicken Pox - Past Surgical History HEENT Surgical History: Reports: Cataract Surgery, Other (See Below) Other HEENT Surgeries/Procedures: eye injections GI Surgical History: Reports: Bariatric Procedure, Cholecystectomy Female Surgical History: Reports: Tubal Ligation Musculoskeletal Surgical History: Reports: Joint Replacement, Knee Replacement, Shoulder Surgery Other Musculoskeletal Surgeries/Procedures:: both knees Social & Family History - Family History HEENT: Reports: Macular Degeneration Cardiac: Reports: Heart Failure Other Endocrine/Metabolic Family History: No family history of difficulty with anesthesia - Caffeine Use Caffeine Use: Reports: Coffee ED ROS GENERAL - Review of Systems Review Of Systems: See Below Constitutional: Reports: No Symptoms HEENT: Reports: Vertigo Respiratory: Reports: No Symptoms Cardiovascular: Reports: Other (Back pain between her shoulder blades transiently) Endocrine: Reports: No Symptoms GI/Abdominal: Reports: No Symptoms : Reports: No Symptoms Musculoskeletal: Reports: Back Pain Skin: Reports: No Symptoms Neurological: Reports: Dizziness, Syncope Psychiatric: Reports: No Symptoms Hematologic/Lymphatic: Reports: No Symptoms Immunologic: Reports: No Symptoms - Physical Exam Exam: See Below Exam Limited By: No Limitations General Appearance: Alert, WD/WN, No Apparent Distress, Anxious Eye Exam: Bilateral Eye: EOMI, PERRL Ears: Normal External Exam Nose: Normal Inspection Throat/Mouth: Normal Inspection, Other (Minor circular abrasion to the right upper lip) Head Exam: Atraumatic, Normocephalic, Facial Abrasions Neck: Normal Inspection Respiratory/Chest: No Respiratory Distress, Lungs Clear, Normal Breath Sounds, No Accessory Muscle Use, Chest Non-Tender Cardiovascular: Regular Rate, Rhythm, No Edema, No Murmur GI/Abdominal: Normal Bowel Sounds, Soft, Non-Tender, No Distention Neuro Exam (Abbreviated): Alert, Oriented, Normal Cognition, Normal Reflexes, No Motor/Sensory Deficits Back Exam: Normal Inspection, Full Range of Motion Extremities: Normal Inspection, Non-Tender, No Pedal Edema Psychiatric: Normal Affect, Normal Mood Skin Exam: Warm, Dry, Normal Color Course - Vital Signs Text/Narrative:: 80-year-old female with pain between her shoulder blades today with no cardiovascular history in [facility] with cardiac disease felt a little dizzy when she got up from the chair to go to the bathroom and sat down on the stool. She was sitting there not having done anything when she really felt dizzy and apparently fell down onto her face awakening on the floor after a few seconds noting abrasion to her upper lip. She then got up and continued with her activities. She lives with a man who has positive Covid recently and another elderly person in the room as well. Has not any other symptoms of Covid however Departure - Departure Disposition: Home, Self-Care 01 Clinical Impression: COVID-19 - Discharge Information Instructions: COVID-19 Frequently Asked Questions, COVID-19, COVID-19: How to Protect Yourself and Others - CDC Referrals: PCP,None [Primary Care Provider] - Forms: ED Department Discharge Additional Instructions: follow up with primary care as needed return to ED with worsening of symptoms Sepsis Event Note (ED) - Evaluation Sepsis Screening Result: No Definite Risk <OfficerStef - Last Filed: 09/02/20 18:46> Course - Vital Signs Last Recorded V/S: Last Vital Signs Temp 96.9 F 09/02/20 16:11 Pulse 64 09/02/20 17:45 Resp 21 H 09/02/20 17:45 BP 92/70 09/02/20 17:45 Pulse Ox 97 09/02/20 16:11 - Orders/Labs/Meds Orders: Active Orders 24 hr Category Date Time Status EKG Documentation Completion [RC] ASDIRECTED Care 09/02/20 17:31 Active EKG 12 Lead [EK] Stat Ther 09/02/20 17:30 Ordered Labs: Laboratory Tests 09/02/20 Range/Units 18:29 SARS CoV-2 RNA Rapid RADHA Positive H Departure - Departure Time of Disposition: 18:45 Condition: Fair Sepsis Event Note (ED) - Focused Exam Vital Signs: Vital Signs Temp Pulse Resp BP Pulse Ox 09/02/20 17:45 64 21 H 92/70 09/02/20 16:11 96.9 F 58 L 16 117/44 L 97 09/02/20 16:10 58 L 117/44 L - Assessment/Plan Plan: took of care from Dr. Bourne at shift change pending test results Assesment covid-19 positive Plan asymptomatic supportive are and quarantine.
[2020-09-02 17:47] VITALS: BP 92/70; PULSE 64
== END 2020-09-02 19:05 | disposition home or self-care (01) ==
LOC: JP.ED 16:09
DX: U07.1 COVID-19 (principal); I11.0 Hypertensive heart disease with heart failure; I50.9 Heart failure, unspecified; E66.9 Obesity, unspecified; Z68.32 Body mass index [BMI] 32.0-32.9, adult; Z91.048 Other nonmedicinal substance allergy status; Z79.899 Other long term (current) drug therapy
CPT/HCPCS: 93005; 99284; U0002

== ENCOUNTER 2021-12-21 20:43 | Emergency (ER) | payer MEDICARE, BC ==
[2021-12-21] MEDS ORDERED: Sodium Chloride 0.9% 10 ML Syringe FLUSH PRN (21:59)
[2021-12-21] MEDS ORDERED: Sodium Chloride 0.9% 1,000 ML IV SCH (22:00)
[2021-12-21 22:54] VITALS: BP 142/65; PULSE 70
== END 2021-12-21 22:46 ==
LOC: JP.ED 20:43
DX: S72.471A Torus fracture of lower end of right femur, initial encounter for closed fracture (principal); E78.00 Pure hypercholesterolemia, unspecified; I11.0 Hypertensive heart disease with heart failure; I50.9 Heart failure, unspecified; E66.9 Obesity, unspecified; Z91.048 Other nonmedicinal substance allergy status; Z79.899 Other long term (current) drug therapy; Z20.822 Contact with and (suspected) exposure to COVID-19; Z96.651 Presence of right artificial knee joint; Z68.36 Body mass index [BMI] 36.0-36.9, adult; Z96.652 Presence of left artificial knee joint; W18.30XA Fall on same level, unspecified, initial encounter
CPT/HCPCS: 27510; 51702; 73560-26-RT; 73560-RT; 99283; 99285-25; J3490; J7030; U0002